=== PATIENT | male | born 1940 | race Caucasian/White ===

== ENCOUNTER 2018-10-06 13:14 | Inpatient (IN) ==
--- NOTE | 2018-10-06 13:23 | Emergency Department Note ---
Disposition Clinical Impression: Cerebrovascular accident Disposition: Admitted As Inpatient Condition: Undetermined General Adult HPI - General Stated complaint: Stroke like symptoms Time Seen by Provider: 10/06/18 13:16 - Related Data Home Medications Medication Instructions Recorded Confirmed Aspirin [Lo-Dose Aspirin EC] 81 mg PO DAILY 09/18/16 10/06/18 Multivitamin [Multi-Day Vitamins] 1 each PO DAILY 09/18/16 10/06/18 Cranberry 400 mg PO BID 10/06/18 10/06/18 Ubidecarenone [Coenzyme Q10] 100 mg PO DAILY 10/06/18 10/06/18 Allergies Allergy/AdvReac Type Severity Reaction Status Date / Time No Known Allergies Allergy Verified 09/18/16 12:57 Past Medical History - Past Medical History Medical history: Reports: atrial fibrillation, cancer, coronary artery disease, hyperlipidemia, malignancy, myocardial infarction, osteoporosis, valvular heart disease Surgical history: Reports: angioplasty/stent Psychiatric history: Reports: no psych history - Social History Smoking Status: Never smoker Alcohol use: Reports: none Drug use: Reports: none Course Vital Signs Temperature 98.1 F 10/06/18 13:19 Pulse Rate 62 10/06/18 13:19 Respiratory Rate 16 10/06/18 13:19 Blood Pressure 178/82 10/06/18 13:19 O2 Sat by Pulse Oximetry 99 10/06/18 13:19 Temperature 98.2 F 10/06/18 17:22 Pulse Rate 96 10/06/18 17:22 Respiratory Rate 15 10/06/18 17:22 Blood Pressure 156/80 10/06/18 17:22 O2 Sat by Pulse Oximetry 96 10/06/18 17:22 Medical Decision Making - Lab Data Result diagrams: 10/06/18 13:25 10/06/18 13:25 Lab Results 10/06/18 10/06/18 10/06/18 Range/Units 13:25 13:25 13:25 WBC 5.7 (4.3-11.1) K/mcL RBC 5.48 (4.19-5.50) M/mcL Hgb 16.9 (12.9-16.9) g/dL Hct 49.8 (37.5-50.1) % MCV 90.9 (83.0-100.0) fL MCH 30.8 (28.0-33.3) pg MCHC 33.9 (31.6-35.5) g/dL RDW 12.7 (11.5-14.5) % Plt Count 184 (140-400) K/mcL MPV 9.7 (9.4-12.4) fL Immature Gran % 0.2 (0-4) % Seg Neutrophils % 69.1 % Lymphocytes % 18.1 % Monocytes % 10.7 % Eosinophils % 1.2 % Basophils % 0.7 % Neutrophils # 3.9 (1.6-8.9) K/mcL Lymphocytes # 1.0 (0.6-4.6) K/mcL Monocytes # 0.6 (0.0-1.3) K/mcL Eosinophils # 0.1 (0.0-0.6) K/mcL Basophils # 0.0 (0.0-0.2) K/mcL PT 10.4 (9.4-12.1) Seconds INR 0.9 APTT 32.8 (26.0-36.0) Seconds Sodium 138 (136-145) mEq/L Potassium 4.3 (3.5-5.1) mEq/L Chloride 105 (98-107) mEq/L Carbon Dioxide 26 (23-29) mEq/L BUN 14 (8-23) mg/dL Creatinine 1.34 H (0.70-1.30) mg/dL Est GFR ( Amer) > 60 (> 60) Est GFR (Non-Af Amer) 52 L (> 60) BUN/Creatinine Ratio 10 (6-26) Glucose 115 H (70-105) mg/dL Calculated Osmolality 287 (280-300) Calcium 9.8 (8.6-10.3) mg/dL Total Bilirubin 0.5 (0.3-1.0) mg/dL AST 20 (13-39) Units/L ALT 16 (7-52) Units/L Alkaline Phosphatase 68 (34-104) Units/L Troponin I < 0.03 (< 0.04) ng/mL Serum Total Protein 7.8 (6.4-8.9) g/dL Albumin 4.6 (3.5-5.7) g/dL Globulin 3.2 (2.4-3.5) g/dL Albumin/Globulin Ratio 1.4 (1.1-2.2) Attestation Statement - Attestation Attestation: I reviewed the residents documentation and agree with the residents assessment and plan of care. I have personally had face to face time with the patient. (Brief History, Brief Exam, and MDM) I personally supervised and was present for the gleason/critical portions of the following procedures completed by the resident: (add procedures performed here). [id number] time provided I attest to supervised the resident physician's interpretation of the ECG. Patient presents the care of his significant other by private vehicle. Symptoms started 20 hours prior to arrival. She notes expressive aphasia and mild dysarthria. The patient denies focal weakness. The patient is awake and alert upon arrival. The seizure resident's documentation for NIH and full neurologic exam
--- NOTE | 2018-10-06 13:29 | Emergency Department Note ---
Disposition Clinical Impression: Cerebrovascular accident Qualifiers: CVA mechanism: unspecified Qualified Code(s): I63.9 - Cerebral infarction, unspecified Disposition: Admitted As Inpatient Condition: Undetermined Time of Disposition: 16:13 Neuro HPI - General Chief Complaint: ED Neuro Symptoms/Deficit Stated Complaint: Stroke like symptoms Time Seen by Provider: 10/06/18 13:16 Source: patient, family Limitations: no limitations - History of Present Illness HPI Narrative: 78-year-old male past medical history of valve transplant on aspirin but no formal anticoagulation presenting for a 24-hour history of aphasia and confusion. Patient's is at bedside states that patient became confused approximately 5 PM yesterday afternoon when he woke up from sleeping. Patient's states that she has never seen him act this way. Patient's says they have been for the past year and so she does not know his full history, patient is unable to participate in significant history of present illness questioning. Patient is able to answer simple yes or no questions when prompted regarding review of systems. Patient is alert and oriented to person only, cannot identify day of the week, location, year. Patient requires significant prompting to obey neurological examination commands. There are no focal neurological deficits appreciated other than what is mentioned above. - Related Data Home Medications: Home Medications Medication Instructions Recorded Confirmed Aspirin [Lo-Dose Aspirin EC] 81 mg PO DAILY 09/18/16 10/06/18 Multivitamin [Multi-Day Vitamins] 1 each PO DAILY 09/18/16 10/06/18 Cranberry 400 mg PO BID 10/06/18 10/06/18 Ubidecarenone [Coenzyme Q10] 100 mg PO DAILY 10/06/18 10/06/18 Allergies/Adverse Reactions: Allergies Allergy/AdvReac Type Severity Reaction Status Date / Time No Known Allergies Allergy Verified 09/18/16 12:57 Review of Systems: Constitutional: Denies: fever, chills Cardiovascular: Denies: chest pain Respiratory: Denies: dyspnea Gastrointestinal: Denies: abdominal pain, nausea, vomiting, diarrhea, constipation, hematemesis, melena, hematochezia Genitourinary: Denies: hematuria Musculoskeletal: Denies: back pain, neck pain Integumentary: Denies: rash Neurological: Denies: headache, weakness, numbness, paresthesias Endocrine: Denies: fatigue All systems ED: reviewed and negative except as stated. Review of Systems: As Per HPI Past Medical History - Past Medical History Medical history: Reports: atrial fibrillation, cancer, coronary artery disease, hyperlipidemia, malignancy, myocardial infarction, osteoporosis, valvular heart disease Surgical history: Reports: angioplasty/stent Psychiatric history: Reports: no psych history - Social History Smoking Status: Never smoker Alcohol use: Reports: none Drug use: Reports: none Physical Exam Constitutional: No acute distress, [id number], engaged to conversation, speech is fluid, answers questions appropriately Neuro: GCS 15, CN II-XII are grossly intact, reflexes 2/4 in bilateral upper and lower extremities, strength 5/5 in bilateral upper and lower extremities Head: Atraumatic, normocephalic Eyes: Pupils equal, round and reactive to light, external ocular muscles intact, no scleral icterus, no conjunctival injection, no nystagmus. Mouth: Mucous membranes are moist, oropharynx is without edema, erythema, or exudate. No tongue swelling, lip swelling, perioral cyanosis, drooling, or trismus. Neck: Trachea midline without deviation. Anterior neck is supple without swelling, no lymphadenopathy or thyromegaly noted. Chest: Symmetric chest wall rise Heart: Cardiac rhythm and rate are regular with S1 and S2 , no S3 or S4 appre ciated, no murmurs, rubs, or clicks. Lungs: Lungs are clear to auscultation bilaterally, without accessory muscle use or prolonged expiratory phase. No wheezes or stridor appreciated. Abdomen: Abdomen is flat, soft to palpation, normal bowel sounds, no evidence of bruising, surgical incisions, or abnormal mass. No abdominal bruit auscultated. Non-distended, non-rigid, no organomegaly, no ascites appreciated. No pulsatile mass, no tenderness or guarding to palpation, no rebound Extremities: No pedal edema, joint swelling or erythema. Pulses/motor/sensory intact in all 4 extremities. Psychiatric exam: Patient displays a normal affect and mood for the environment. No overt signs of hallucination. Integumentary: warm, dry, intact, normal color. No rash, cyanosis, diaphoresis, erythema, or pallor - General Limitations: altered mental status General appearance: alert, in no apparent distress Course Vital Signs Temperature 98.1 F 10/06/18 13:19 Pulse Rate 62 10/06/18 13:19 Respiratory Rate 16 10/06/18 13:19 Blood Pressure 178/82 10/06/18 13:19 O2 Sat by Pulse Oximetry 99 10/06/18 13:19 Temperature 98.1 F 10/06/18 13:19 Pulse Rate 54 10/06/18 14:49 Respiratory Rate 18 10/06/18 14:49 Blood Pressure 161/83 10/06/18 14:49 O2 Sat by Pulse Oximetry 97 10/06/18 14:49 Neuro Symptoms/Deficit - MDM Narrative Medical decision making narrative: Patient CT scan of the head shows left frontal infarction consistent with patient's Broca aphasia Patient will be admitted to hospitalist medicine service for further evaluation and treatment of CVA Patient & family verbalized understanding and agreement this plan. - Lab Data Lab results reviewed: Yes I reviewed the patient's lab results. Result diagrams: 10/06/18 13:25 10/06/18 13:25 Lab Results 10/06/18 10/06/18 10/06/18 Range/Units 13:25 13:25 13:25 WBC 5.7 (4.3-11.1) K/mcL RBC 5.48 (4.19-5.50) M/mcL Hgb 16.9 (12.9-16.9) g/dL Hct 49.8 (37.5-50.1) % MCV 90.9 (83.0-100.0) fL MCH 30.8 (28.0-33.3) pg MCHC 33.9 (31.6-35.5) g/dL RDW 12.7 (11.5-14.5) % Plt Count 184 (140-400) K/mcL MPV 9.7 (9.4-12.4) fL Immature Gran % 0.2 (0-4) % Seg Neutrophils % 69.1 % Lymphocytes % 18.1 % Monocytes % 10.7 % Eosinophils % 1.2 % Basophils % 0.7 % Neutrophils # 3.9 (1.6-8.9) K/mcL Lymphocytes # 1.0 (0.6-4.6) K/mcL Monocytes # 0.6 (0.0-1.3) K/mcL Eosinophils # 0.1 (0.0-0.6) K/mcL Basophils # 0.0 (0.0-0.2) K/mcL PT 10.4 (9.4-12.1) Seconds INR 0.9 APTT 32.8 (26.0-36.0) Seconds Sodium 138 (136-145) mEq/L Potassium 4.3 (3.5-5.1) mEq/L Chloride 105 (98-107) mEq/L Carbon Dioxide 26 (23-29) mEq/L BUN 14 (8-23) mg/dL Creatinine 1.34 H (0.70-1.30) mg/dL Est GFR ( Amer) > 60 (> 60) Est GFR (Non-Af Amer) 52 L (> 60) BUN/Creatinine Ratio 10 (6-26) Glucose 115 H (70-105) mg/dL Calculated Osmolality 287 (280-300) Calcium 9.8 (8.6-10.3) mg/dL Total Bilirubin 0.5 (0.3-1.0) mg/dL AST 20 (13-39) Units/L ALT 16 (7-52) Units/L Alkaline Phosphatase 68 (34-104) Units/L Troponin I < 0.03 (< 0.04) ng/mL Serum Total Protein 7.8 (6.4-8.9) g/dL Albumin 4.6 (3.5-5.7) g/dL Globulin 3.2 (2.4-3.5) g/dL Albumin/Globulin Ratio 1.4 (1.1-2.2) - Radiology Data Radiology results reviewed: Yes I reviewed the patient's radiology results. Head CT 10/06/18 13:21 IMPRESSION: Questionable area of acute or subacute infarct left frontal lobe. MRI with diffusion pulse sequence imaging would prove helpful for further assessment. No acute intracranial hemorrhage is seen. D/ / 10/06/2018 14:39:54 Varun French MD / maura Interpreting Provider: Varun French MD - EKG Data EKG attestation: Yes I reviewed and interpreted this EKG. EKG results narrative: Patient EKG shows a sinus rhythm with a heart rate of 64 bpm, NH interval of 186 ms, QR denominational 90 ms, QT/QTc interval 401/414 ms respectively. There are no significant ST segment elevations, depressions, pathologic Q waves, abnormal T- wave inversions, nor any other signs of acute ischemic change. This EKG performed today is generally consistent with prior EKG performed on 09/11/2016. NIH Stroke Scale - Level of Consciousness LOC: Alert - LOC Questions LOC Questions: Answers one correctly - LOC Commands LOC Commands: Performs one correctly - Best Gaze Best Gaze: Normal - Visual Visual: No visual loss - Facial Palsy Facial Palsy: Normal - Motor Arms Motor Arm-Left: No drift for 10 seconds Motor Arm-Right: No drift for 10 seconds - Motor Legs Motor Leg-Left: No drift for 5 seconds Motor Leg-Right: No drift for 5 seconds - Limb Ataxia Limb Ataxia: Normal, No Ataxia - Sensory Sensory: Normal - Best Language Best Language: Mild to moderate aphasia. Examiner can identify picture from response - Dysarthria Dysarthria: Mild, slurs some words - Extinction and Inattention Extinction and Inattention: Inattention or extinction in ONE modality - NIHSS Total Score NIHSS Total Score: 5 - Pupil Exam Left Pupil Reaction: Brisk Right Pupil Reaction: Brisk TPA Checklist - LKW: 3-4.5 hrs Add. Warnings/Precautions Patient/family understanding: The patient/family members have been counseled and understood the risk, benefit, and alternatives of treatment.
[2018-10-06 13:36] LABS: Basophils % 0.7 %; Eosinophils # 0.1 K/mcL (0.0-0.6); Eosinophils % 1.2 %; Hematocrit 49.8 % (37.5-50.1); Hemoglobin 16.9 g/dL (12.9-16.9); Immature Granulocytes % 0.2 % (0-4); Lymphocytes % 18.1 %; Mean Corpuscular HGB Conc 33.9 g/dL (31.6-35.5); Mean Corpuscular Hemoglobin 30.8 pg (28.0-33.3); Mean Corpuscular Volume 90.9 fL (83.0-100.0); Mean Platelet Volume 9.7 fL (9.4-12.4); Monocytes # 0.6 K/mcL (0.0-1.3); Monocytes % 10.7 %; Neutrophils # 3.9 K/mcL (1.6-8.9); Platelet Count 184 K/mcL (140-400); Red Blood Count 5.48 M/mcL (4.19-5.50); Red Cell Distribution Width 12.7 % (11.5-14.5); Segmented Neutrophils % 69.1 %
[2018-10-06 13:44] LABS: INR 0.9; Prothrombin Time 10.4 Seconds (9.4-12.1)
[2018-10-06 13:47] LABS: Activated Partial Thrombo Time 32.8 Seconds (26.0-36.0)
[2018-10-06 13:58] LABS: Alanine Aminotransferase 16 Units/L (7-52); Albumin 4.6 g/dL (3.5-5.7); Albumin/Globulin Ratio 1.4 (1.1-2.2); Alkaline Phosphatase 68 Units/L (34-104); Aspartate Amino Transferase 20 Units/L (13-39); BUN/Creatinine Ratio 10 (6-26); Bilirubin,Total 0.5 mg/dL (0.3-1.0); Blood Urea Nitrogen 14 mg/dL (8-23); Calcium 9.8 mg/dL (8.6-10.3); Carbon Dioxide 26 mEq/L (23-29); Chloride 105 mEq/L (98-107); Globulin 3.2 g/dL (2.4-3.5); Glucose 115 mg/dL (70-105); Osmolality,Calculated 287 (280-300); Potassium 4.3 mEq/L (3.5-5.1); Sodium 138 mEq/L (136-145); Total Protein 7.8 g/dL (6.4-8.9); eGFR For Non-African Americans 52 (> 60)
[2018-10-06 13:59] LABS: Troponin I < 0.03 ng/mL (< 0.04)
[2018-10-06] MEDS ORDERED: Ondansetron 4 MG/2 ML VIAL IVP PRN (15:48)
[2018-10-06] MEDS ORDERED: Naloxone 0.4 MG/ML INJ IVP PRN (15:48)
--- NOTE | 2018-10-06 16:35 | Internal Med History&Physical ---
Date of Encounter: 10/06/18 Time of Encounter: 16:35 Internal Medicine - H&P: HPI Chief complaint: If occultly speaking Admitted From: Emergency Dept Plans for Post Hospital Care: Home History of present illness: Mr. Benítez is a 78 year old male past medical history of ND with stent placement 2 hypertension valve replacement in 2016 BPH patient has one kidney- according to the patient was at home preparing to eat dinner yesterday evening approximately 5 PM and was saying amber having difficulty finding words she noticed that his face was very red he also had elevated blood pressure yesterday with systolic ran 170 patient's states usually it is 120 systolic. As the day progressed he continued unable to speak and did display some confusion. This a.m. became concerned because symptoms did not re solve he was brought to the ER for evaluation. Prior to this episode patient was in his usual state of health CT of head was obtained which did reveal a questionable area of acute or subacute infarct in left frontal lobe. Lab work was unremarkable. He was admitted for further work up evaluation. Currently patient is able to tell me his name and that he is at [place] however he displays word searching and at times needs prompted. No other focal deficits noted- during evaluation he needs prompted to follow commands. Vital signs are stable at this time he has been admitted for further workup and evaluation for CVA I did discuss CODE STATUS with the patient and request DNR CC CAD and I. Past Med Surg Social Fam HX - Past Medical History Medical history: atrial fibrillation, cancer, coronary artery disease, hyperlipidemia, malignancy, myocardial infarction, osteoporosis, valvular heart disease Psychiatric history: no psych history - Past Surgical History Surgical History: angioplasty/stent Additional surgical history: tissue valve - Social History Smoking Status: Never smoker Alcohol use: none Drug use: none - Family History Father Living Status: Hx Family Cardiac Disorders: Yes (brother) Hx Family Respiratory Disorders: No Hx Family Cancer: Yes (mother) Hx Family GI Disorders: No Hx Family Endocrine Disorder: Yes (mother, father) Hx Family Neuromuscular Disorders: No Hx Family Neurologic Disorders: No Hx Family HEENT Disorders: No Hx Family Autoimmune Disorders: No Internal Medicine - H&P: Meds Aspirin [Lo-Dose Aspirin EC] 81 mg PO DAILY 09/18/16 [History] Multivitamin [Multi-Day Vitamins] 1 each PO DAILY 09/18/16 [History] Cranberry 400 mg PO BID 10/06/18 [History] Ubidecarenone [Coenzyme Q10] 100 mg PO DAILY 10/06/18 [History] Allergy/AdvReac Type Severity Reaction Status Date / Time No Known Allergies Allergy Verified 09/18/16 12:57 All Systems PM: A 10-system review of systems was performed and is negative for pertinent findings except as documented above in the HPI. - Constitutional Constitutional: no chills, no fever(s), no night sweats - EENT Eyes: no change in vision, no discharge, no pain, no photophobia Ears: no ear discharge, no ear pain, no tinnitus Nose, mouth and throat: no dysphagia, no nasal discharge, no neck pain, no sore throat - Constitutional Vitals: Temp Pulse Resp BP Pulse Ox 98.1 F 59 18 167/89 97 10/06/18 13:19 10/06/18 16:27 10/06/18 16:27 10/06/18 16:27 10/06/18 16:27 General appearance: Present: A&O X 2 Exam: . - Head Head exam: Present: atraumatic, normocephalic - Eye Eye exam: Present: PERRL, conjuntiva pink, sclera anicteric Pupils: Present: PERRL - Neck Neck exam general surgery: Present: supple, trachea midline. Absent: lymphadenopathy - Respiratory Respiratory exam: Present: CTAB. Absent: accessory muscle use, rales, rhonchi, wheezes - Cardiovascular Cardiovascular exam: Present: RRR, +S1, +S2. Absent: diastolic murmur, gallop, rubs, systolic murmur - GI/Abdominal GI/Abdominal exam: Present: normal bowel sounds, soft, no peritoneal signs. Absent: distended, tenderness - Extremities Exam Extremities exam: Present: warm, radial pulses palpable and symmetrical. Absent: calf tenderness, cyanotic, pedal edema - Neurological Exam Neurological exam: Present: CN II-XII intact, oriented X3, no focal deficits. Absent: pronater drift, facial droop, speech deficit - Expanded Neurological Exam Neurological exam expanded: Present: expressive aphasia Patient oriented to: Present: person, place Speech: Present: anomia Cranial Nerves: EOM's intact PM: Normal, nystagmus PM: Normal, tongue deviation PM: Normal Cerebellar function: finger to nose: Abnormal Left, Abnormal Right (Unable to follow commands), heel to green: Normal Neuro motor strength exam: LUE: 5, RUE: 5, LLE: 5, RLE: 5 Coma Scale Eye Opening: Spontaneous Coma Scale Motor Response: Obeys Commands Coma Scale Verbal Response: Confused Coma Scale Total: 14 - Skin Skin exam: Present: dry, intact Internal Med - H&P Results - Labs CBC & Chem 7: 10/06/18 13:25 10/06/18 13:25 Labs: Short CBC 10/06/18 Range/Units 13:25 WBC 5.7 (4.3-11.1) K/mcL Hgb 16.9 (12.9-16.9) g/dL Hct 49.8 (37.5-50.1) % Plt Count 184 (140-400) K/mcL Neutrophils # 3.9 (1.6-8.9) K/mcL BMP 10/06/18 13:25 Sodium 138 Potassium 4.3 Chloride 105 Carbon Dioxide 26 BUN 14 Creatinine 1.34 H Glucose 115 H Calcium 9.8 Cardiac Enzymes 10/06/18 Range/Units 13:25 Troponin I < 0.03 (< 0.04) ng/mL Liver Function 10/06/18 Range/Units 13:25 Total Bilirubin 0.5 (0.3-1.0) mg/dL AST 20 (13-39) Units/L ALT 16 (7-52) Units/L Alkaline Phosphatase 68 (34-104) Units/L Albumin 4.6 (3.5-5.7) g/dL - EKG Data EKG shows normal: sinus rhythm - Impressions ITS Impressions Head CT 10/06/18 13:21 IMPRESSION: Questionable area of acute or subacute infarct left frontal lobe. MRI with diffusion pulse sequence imaging would prove helpful for further assessment. No acute intracranial hemorrhage is seen. D/ / 10/06/2018 14:39:54 Varun French MD / maura Interpreting Provider: Varun French MD - Assessment and Plan (1) Cerebrovascular accident Current Visit: Yes Status: Acute Assessment and plan: Patient presented with sudden onset of confusion and expressive aphasia-which began approximately 5:00 yesterday evening-CT of head does show possible area of acute or subacute infarct left frontal lobe We will obtain MRI head and brain Continuous cardiac monitoring Obtain cardiac echo Obtain carotid duplex Aspirin-we will give RC due to possible dysphagia Speech therapy evaluation Bedside evaluation for speech NIHSS PT OT evaluation Neurology has been consulted Lipid profile statin Allow permissive hypertension hydralazine as needed Qualifiers: CVA mechanism: unspecified Qualified Code(s): I63.9 - Cerebral infarction, unspecified (2) HTN (hypertension) Current Visit: Yes Status: Acute Assessment and plan: We will allow for permissive hypertension hydralazine as needed-patient is not on any home medications for high blood pressure Qualifiers: Hypertension type: essential hypertension Qualified Code(s): I10 - Essential (primary) hypertension (3) DVT prophylaxis Current Visit: Yes Status: Acute Assessment and plan: scd - Time Spent With Patient Total time spent is greater than 50% in coordination of care (as documented) at patient's floor/unit and/or counseling patient:
[2018-10-06] MEDS ORDERED: 0.9 % Sodium Chloride 1,000 ML IVC SCH (17:45)
[2018-10-07] MEDS ORDERED: diazePAM 10 MG/2 ML SYRINGE IVP ONE (00:55)
[2018-10-07 01:36] LABS: Basophils % 0.6 %; Eosinophils # 0.1 K/mcL (0.0-0.6); Eosinophils % 1.6 %; Hematocrit 47.9 % (37.5-50.1); Hemoglobin 16.4 g/dL (12.9-16.9); Immature Granulocytes % 0.3 % (0-4); Lymphocytes # 1.3 K/mcL (0.6-4.6); Lymphocytes % 18.8 %; Mean Corpuscular HGB Conc 34.2 g/dL (31.6-35.5); Mean Corpuscular Hemoglobin 31.4 pg (28.0-33.3); Mean Corpuscular Volume 91.6 fL (83.0-100.0); Mean Platelet Volume 10.3 fL (9.4-12.4); Monocytes # 0.8 K/mcL (0.0-1.3); Monocytes % 11.2 %; Neutrophils # 4.6 K/mcL (1.6-8.9); Platelet Count 161 K/mcL (140-400); Red Blood Count 5.23 M/mcL (4.19-5.50); Red Cell Distribution Width 12.9 % (11.5-14.5); Segmented Neutrophils % 67.5 %
[2018-10-07 01:52] LABS: BUN/Creatinine Ratio 12 (6-26); Blood Urea Nitrogen 14 mg/dL (8-23); Calcium 9.6 mg/dL (8.6-10.3); Carbon Dioxide 23 mEq/L (23-29); Chloride 107 mEq/L (98-107); Chol/HDL Ratio 4.1 (0-4.9); Cholesterol 159 mg/dL (< 200); Glucose 83 mg/dL (70-105); HDL Cholesterol 39 mg/dL (40-59); LDL Cholesterol,Calculated 102 mg/dL (0-99); Magnesium 2.1 mg/dL (1.6-2.6); Osmolality,Calculated 290 (280-300); Potassium 4.4 mEq/L (3.5-5.1); Sodium 140 mEq/L (136-145); Triglycerides 92 mg/dL (< 150); eGFR For Non-African Americans > 60 (> 60)
[2018-10-07] MEDS ORDERED: Perflutren Lipid Microsphere 1.3 ML in 0.9 % Sodium Chloride 8.7 ML IVP ONE (07:40)
[2018-10-07] MEDS ORDERED: Aspirin Enteric Coated 81 MG Tablet PO SCH (09:00)
--- NOTE | 2018-10-07 09:38 | Neurology - Consult Note ---
Date of Encounter: 10/07/18 Time of Encounter: 09:36 Assessment and Plan (1) Cerebrovascular accident Current Visit: Yes Status: Acute Neuro consulted for an acute CVA Risk factors Presented with sudden expressive aphasia and confusion MRI imaging positive for acute ischemia identifying a small area of acute infarct in the left frontal lobe. Additionally there is a punctate area of acute infarct within the medial right occipital lobe and chronic small vessel ischemic white matter disease and diffuse cerebral volume loss Echocardiogram-pending Given the distribution of ischemia etiology is concerning for an embolic source We will get a RIC in the morning to evaluate for embolic source Start heparin gtt without bolus per stroke protocol given further risk for CVA; if no embolic source found on RIC we will d/c. Agree with continuing aspirin and statin therapy Continue neurological assessments per protocol Qualifiers: CVA mechanism: unspecified Qualified Code(s): I63.9 - Cerebral infarction, unspecified History of Present Illness Chief complaint: CVA HPI: Mr. Benítez is a 78 year old male with a PMH of A. fib not on anticoagulation, cancer, CAD, HLD, IA, valvular heart disease S/P bovine aortic valve. He presents to [facility] with concerns for expressive aphasia and confusion. The patient present with his who reported that he was having hypertensive episodes at home, further she notes that he developed some confusion and did not appear to be able to speak. He appeared to have difficulty with word finding. MRI of the brain completed and identified a small area of acute infarct in the left frontal lobe, additionally there is a punctate area of acute infarct within the medial right occipital lobe and chronic small vessel ischemic white matter disease and diffuse cerebral volume loss. At the time of my exam this morning the patient reports that his expressive aphasia is improving however he does ap pear to have some word searching. He denies any other neurological deficits but again, on exam there is some subtle right arm weakness. Neuro will continue to workup CVA Past Med Surg Social Fam HX - Past Medical History Medical history: atrial fibrillation, cancer, coronary artery disease, hyperlipidemia, malignancy, myocardial infarction, osteoporosis, valvular heart disease Psychiatric history: no psych history - Past Surgical History Surgical History: angioplasty/stent Additional surgical history: tissue valve - Social History Smoking Status: Never smoker Alcohol use: none Drug use: none - Family History Father Living Status: Hx Family Cardiac Disorders: Yes (brother) Hx Family Respiratory Disorders: No Hx Family Cancer: Yes (mother) Hx Family GI Disorders: No Hx Family Endocrine Disorder: Yes (mother, father) Hx Family Neuromuscular Disorders: No Hx Family Neurologic Disorders: No Hx Family HEENT Disorders: No Hx Family Autoimmune Disorders: No Medications and Allergies Aspirin [Lo-Dose Aspirin EC] 81 mg PO DAILY 09/18/16 [History] Multivitamin [Multi-Day Vitamins] 1 each PO DAILY 09/18/16 [History] Cranberry 400 mg PO BID 10/06/18 [History] Ubidecarenone [Coenzyme Q10] 100 mg PO DAILY 10/06/18 [History] Allergy/AdvReac Type Severity Reaction Status Date / Time No Known Allergies Allergy Verified 09/18/16 12:57 All Systems: The remainder of the systems were reviewed and are negative Review of Systems: REVIEW OF SYSTEMS GENERAL: Negative for any nausea, vomiting, fevers, chills, or weight loss, fatigue, exercise tolerance, legs feel heavy, slower to complete tasks, impaired mobility NEUROLOGIC: Negative for any visual disturbances, facial asymmetry, dysphagia, dysarthria, hemiparesis, hemisensory deficits, vertigo, ataxia, seizures, paralysis, tingling, numbness, unilateral weakness or numbness/tingling + Expressive aphasia, confusion CARDIAC: Negative for any chest pain, dyspnea, palpitations Physical Examination - Vital Signs Vital Signs: Initial Vital Signs Temp Pulse Resp BP Pulse Ox 98.1 F 62 16 178/82 99 10/06/18 13:19 10/06/18 13:19 10/06/18 13:19 10/06/18 13:19 10/06/18 13:19 - Exam Exam: Examination: General Examination: *CONSTITUTIONAL: Alert and oriented x3, no acute distress *GENERAL APPEARANCE OF PATIENT appears overall healthy and well groomed *EYES: pupils equal, round, reactive to light and accommodation, conjunctiva clear *CARDIOVASCULAR no peripheral edema, distal temperature normal, dorsalis p lesia pulses normal. see vital signs Musculoskeletal: *GAIT AND STATION patient's gait was somewhat unsteady with a noted rightward drift with ambulation *ASSESSMENT OF MUSCLE STRENGTH IN THE UPPER AND LOWER EXTREMITIES bilaterally deltoid, bicep, tricep, knife blade polisher strength, hip flexors ,anterior tibialis, dorsoflexion of the foot 4/5; subtle right arm weakness but still 4/5 *MUSCLE TONE IN THE UPPER AND LOWER EXTREMITIES normal. No abnormal movements, fasciculations or atrophy identified. Neurological: *ORIENTATION to person, situation, time and place *RECURRENT AND REMOTE MEMORY intact *ATTENTION AND CONCENTRATION are normal *LANGUAGE FUNCTION no significant aphasia or dysarthia was noted. *FUND OF KNOWLEDGE aware of current events, past history, vocabulary *MENTAL attention span and concentration normal. *CN II optic fundi were normal, no papilledema noted. *CN III,IV, PERRLA extraocular eye movements were full, no nystagmus and no ptosis noted. *CN V shows normal sensation and jaw opens symmetrically. *CN VII shows normal facial movement symmetrically, upper and lower bilaterally. *CN VIII shows no significant hearing loss on exam *CN IX,,X palate elevated symmetrically *CN XI normal strength in the sternocleidomastoid muscles, symmetrical shoulder shrugging. *CN XII tongue protruded in the midline, with normal strength and movement. *SENSORY EXAMINATION light touch intact *REFLEXES: deep tendon reflexes were normal and symmetrical , grade 2/4 diffusely, no pathological reflexes were noted. *CEREBELLAR TESTING normal finger to nose, heel/knee/green *PAIN LEVEL 0 Results - Laboratory Findings CBC and BMP: 10/07/18 00:25 10/07/18 00:25 Abnormal lab findings: Abnormal lab results 1.34 mg/dL (0.70-1.30) H 10/06/18 13:25 Est GFR (Non-Af Amer) 52 (> 60) L 10/06/18 13:25 Glucose 115 mg/dL (70-105) H 10/06/18 13:25 POC Glucose 104 mg/dL (70-99) H 10/06/18 13:18 LDL Cholesterol, Calc 102 mg/dL (0-99) H 10/07/18 00:25 39 mg/dL (40-59) L 10/07/18 00:25 - Diagnostic Findings Additional findings: MR/MR head/brain wo con IMPRESSION: Small area of acute infarct within the left frontal lobe. Additional punctate area of acute infarct within medial right occipital lobe. No evidence of intracranial hemorrhage. Chronic small vessel ischemic white matter disease and diffuse cerebral volume loss. Consult Discharge Plan - Plan [facility]errals: [facility] [Primary Care Provider] -
--- NOTE | 2018-10-07 12:25 | Electrocardiograph Report ---
Echo with Saline Contrast Name: Boris Benítez Date of Study: 10/07/2018 Date: 1940 Ht: 67.0 in Medical Record#: [id number] Age: 78 Wt: 182.0 lb Gender: Male BSA: 1.94 Order #: [id number] Location: [facility] Room #: 2NE31 Reading Physician:Howie Bennett MD, FACC Ordering Physician:Monse Thornton CNP Wharf Hand: Michelle Lucero, ARTHUR, RVT Indications: Cerebrovascular Accident Impressions: LVEF 55%. Mild left ventricular diastolic dysfunction. Normal right ventricular structure and function. No evidence of PFO with agitated saline contrast. Mild aortic stenosis. Mild tricuspid regurgitation. No evidence of pulmonary hypertension. Left Ventricular Wall Motion: Rest Echo Findings All wall segments showed normal motion. Findings: Study Quality * Technically sub-optimal due to poor echocardiographic windows. ECG Findings * Normal sinus rhythm. * Sinus rhythm with PACs. Left Ventricle * LVEF 55%. * Mild left ventricular diastolic dysfunction. * Atypical septal motion noted. * Normal LV chamber size, wall thickness and function. Right Ventricle * Normal right ventricular structure and function. Left Atrium * Normal left atrial size. Right Atrium * Normal right atrial size. Interatrial Septum * No evidence of PFO with agitated saline contrast. Aortic Valve * Trileaflet aortic valve. * Peak aortic velocity and mean gradients are 2.79m/s and 14 mmHg, respectively. * Mild aortic stenosis. * No aortic regurgitation. * Mildly calcified aortic valve leaflets. Mitral Valve * Trace mitral regurgitation. * No mitral stenosis. * Normal mitral valve structure. Tricuspid Valve * Mild tricuspid regurgitation. * No evidence of pulmonary hypertension. * No tricuspid stenosis. * Normal tricuspid valve structure. Pulmonic Valve * Pulmonic valve not well visualized. Aorta * Normally sized aortic root. Pericardium * The pericardium appears normal. IVC * The IVC is not well evaluated. Pulmonary Artery * Pulmonary artery not well visualized. History Hypercholesteremia Family History of CAD History of CAD/PTCA Myocardial Infarction Valvular Disease Contrast: Agitated saline 20 ml. Measurements: BP: 121/ 74 2D Normal Values RVIDd: 3.20 cm <2.7 cm IVSd: .90 cm 0.6 - 1.0 cm LVIDd: 5.30 cm 3.7 - 5.6 cm LVPWd: .80 cm 0.6 - 1.1 cm LVIDs: 3.90 cm 1.5 - 3.6 cm AO: 1.90 cm < 4.0 cm LA: 4.10 cm 2.0 - 4.0cm %FS: 26.40 cm >25 % LVOT Diam: 2.00 cm LA volume: 61 Mitral Valve Peak E:.85 m/sec Peak A:.88 m/sec E/A Ratio:1 Peak E' Lat Vahe:9.47 cm/s Peak E' Med Vahe:4.9 cm/s E/E' Lat Ratio:9 E/E' Med Ratio:17.4 LVOT Peak Vahe:1.14 m/sec Mean Vahe:.75 m/sec Peak Grad:5.00 mmHg Mean Grad:3.00 mmHg Aortic Valve Peak Vahe:2.79 m/sec Mean Vahe:1.75 m/sec Peak Grad:31.00 mmHg Mean Grad:14.00 mmHg Valve Area:1.26 cm2 Tricuspid Valve TV Regurg Peak Grad: 20.00mmHg TV Regurg Peak Vahe: 2.26m/sec Updated by Howie Bennett MD, FACC on 10/07/2018 12:17:09 PM electronically signed on 10/07/2018 12:18:25 PM with status of Final Wall Motion Lamb: 1=Normal, 2=Hypokinesis, 3=Akinesis, 4=Dyskinesis, 5=Aneurysmal, 6=Hyperkinetic, X=Not Visualized (Blank)=Missing
[2018-10-07] MEDS ORDERED: Isovue-370 500 ML BOTTLE IVP ONE (12:29)
[2018-10-07] MEDS ORDERED: *HR* Heparin 5,000 UNIT/ML VIAL IVP PRN ×2 (16:05)
[2018-10-07] MEDS ORDERED: Heparin 25,000 UNIT/250 ML D5W 25,000 UNIT/250 ML IV.SOLN IVC SCH (16:15)
[2018-10-07 16:35] LABS: Hematocrit 52.2 % (37.5-50.1); Hemoglobin 17.7 g/dL (12.9-16.9); Mean Corpuscular HGB Conc 33.9 g/dL (31.6-35.5); Mean Corpuscular Hemoglobin 31.6 pg (28.0-33.3); Mean Platelet Volume 9.7 fL (9.4-12.4); Platelet Count 179 K/mcL (140-400); Red Blood Count 5.61 M/mcL (4.19-5.50); Red Cell Distribution Width 12.9 % (11.5-14.5)
[2018-10-07 16:37] LABS: Bilirubin,Urine Negative (Negative); Blood,Urine Negative (Negative); Clarity,Urine Clear (Clear); Color,Urine Yellow (Yellow); Glucose,Urine (UA) Normal (Normal); Ketones,Urine 40 mg/dL (Negative); Leukocyte Esterase,Urine Negative (Negative); Nitrite,Urine Negative (Negative); PH,Urine 5.5 pH Units (5.0-8.0); Protein,Urine Negative (Neg-Trace); Specific Gravity,Urine > 1.030 (1.010-1.025); Urobilinogen,Urine Normal (Normal)
[2018-10-07 16:42] LABS: Heparin anti-factor XA UFH 0.02 IU/mL (0.30-0.70); Prothrombin Time 10.9 Seconds (9.4-12.1)
[2018-10-07 18:44] LABS: Activated Partial Thrombo Time 32.3 Seconds (26.0-36.0)
--- NOTE | 2018-10-07 19:56 | Internal Med Progress Note ---
Hospitalist Progress Note - Encounter Date of Encounter: 10/07/18 Time of Encounter: 19:49 - Subjective Interval History: Pt denies fever, chills, N/V or diarrhea. He denies CP or SOB. HE denies trouble with is vision or difficulty swallowing. He denies difficulty ambulating or any other focal weakness. He states " I'm fine." Female friend at bedside during my evaluation. - Exam Vitals: Temp Pulse Resp BP Pulse Ox 97.9 F 94 15 126/70 98 10/07/18 07:16 10/07/18 15:55 10/07/18 15:55 10/07/18 15:55 10/07/18 15:55 Exam: General appearance: Present: A&O X 2 Exam: Head exam: Present: atraumatic, normocephalic Eye exam: Present: PERRL, conjuntiva pink, sclera anicteric Pupils: Present: PERRLA Neck exam general surgery: Present: supple, trachea midline. Absent: lymphadenopathy Respiratory exam: Present: CTAB. Absent: accessory muscle use, rales, rhonchi, wheezes Cardiovascular exam: Present: RRR, +S1, +S2. Absent: diastolic murmur, gallop, rubs, systolic murmur GI/Abdominal exam: Present: normal bowel sounds, soft, no peritoneal signs. Absent: distended, tenderness Extremities exam: Present: warm, radial pulses palpable and symmetrical. Absent: calf tenderness, cyanotic, pedal edema Neurological exam: Present: CN II-XII intact, oriented X3, no focal deficits. Absent: pronater drift, facial droop, speech deficit - Assessment and Plan (1) Cerebrovascular accident Current Visit: Yes Status: Acute Assessment and Plan: Patient presented with sudden onset of confusion and expressive aphasia-which began approximately 5:00 yesterday evening -CT of head did show possible area of acute or subacute infarct left frontal lobe MRI rain showed small area of infarct. Neurology changing TTE to RIC CTA head and neck also ordered and no intracranial arterial large vessel Aspirin-we will give RC due to possible dysphagia Speech evaluation ordered and neuro making NPO again NIHSS PT/OT evaluation ordered Neurology has been consulted Lipid profile ASA and Statin Allow permissive hypertension hydralazine as needed (2) HTN (hypertension) Current Visit: Yes Status: Acute Assessment and Plan: We will allow for permissive hypertension hydralazine as needed-patient is not on any home medications for high blood pressure (3) HLD (hyperlipidemia) Current Visit: Yes Status: Acute Assessment and Plan: Continue on statin DVT Prophylaxis: scd - Time Spent with Patient Total time spent is greater than 50% in coordination of care (as documented) at patient's floor/unit and/or counseling patient: less than 15 minutes Plan of Care Discussed with: patient Internal Medicine: Result - Labs CBC & Chem 7: 10/07/18 16:20 10/07/18 00:25 Labs: Short CBC 10/07/18 10/07/18 Range/Units 00:25 16:20 WBC 6.8 7.0 (4.3-11.1) K/mcL Hgb 16.4 17.7 H (12.9-16.9) g/dL Hct 47.9 52.2 H (37.5-50.1) % Plt Count 161 179 (140-400) K/mcL Neutrophils # 4.6 (1.6-8.9) K/mcL BMP 10/07/18 00:25 Sodium 140 Potassium 4.4 Chloride 107 Carbon Dioxide 23 BUN 14 Creatinine 1.16 Glucose 83 Calcium 9.6 Cardiac Enzymes 10/07/18 Range/Units 00:25 Troponin I < 0.03 (< 0.04) ng/mL Urine 10/07/18 Range/Units 16:24 Urine Color Yellow (Yellow) Urine Clarity Clear (Clear) Urine pH 5.5 (5.0-8.0) pH Units Ur Specific Tracy > 1.030 H (1.010-1.025) Urine Protein Negative (Neg-Trace) mg/dL Urine Glucose (UA) Normal (Normal) mg/dL - ABG Interpretation ABG results: PT/INR, D-dimer PT 10.9 Seconds (9.4-12.1) 10/07/18 16:20 - Impressions Impressions Head CTA 10/07/18 13:00 IMPRESSION: No intracranial arterial large vessel occlusion. No arterial flow-limiting stenosis in the neck. No evidence of acute intracranial hemorrhage. No mass effect. D/ / 10/07/2018 13:46:01 Jerson Cano MD / katie Interpreting Provider: Jerson Cano MD Neck CTA 10/07/18 13:00 IMPRESSION: No intracranial arterial large vessel occlusion. No arterial flow-limiting stenosis in the neck. No evidence of acute intracranial hemorrhage. No mass effect. D/ / 10/07/2018 13:46:01 Jerson Cano MD / katie Interpreting Provider: Jerson Cano MD Consult Discharge Plan - Plan [facility]errals: [facility] [Primary Care Provider] - _ (1) Cerebrovascular accident Qualifiers: CVA mechanism: unspecified Qualified Code(s): I63.9 - Cerebral infarction, unspecified (2) HTN (hypertension) Qualifiers: Hypertension type: essential hypertension Qualified Code(s): I10 - Essential (primary) hypertension
[2018-10-08] MEDS ORDERED: *HR* FentaNYL (PF) 100 MCG/2 ML VIAL IVP PRN (07:58)
[2018-10-08] MEDS ORDERED: Lidocaine Viscous Oral Soln 15 ML SOLUTION MM PRN (07:58)
[2018-10-08] MEDS ORDERED: 0.9 % Sodium Chloride 500 ML IVC ONE (07:59)
--- NOTE | 2018-10-08 08:28 | Internal Med Progress Note ---
Hospitalist Progress Note - Encounter Date of Encounter: 10/08/18 Time of Encounter: 11:00 - Subjective Interval History: awake, family at bedside, back from [place]. denies weakness, speech is returned to normal, no numbness, tingling. - Exam Vitals: Temp Pulse Resp BP Pulse Ox 97.9 F 62 12 157/80 98 10/08/18 08:11 10/08/18 08:11 10/08/18 08:11 10/08/18 08:11 10/08/18 08:11 Exam: gen- alert, awake,appears stated age eyes- pupils equal round cv- reg rate and rhythm, normal s1,s2, no murmurs appreciated, no le edema lungs- ctabl, no wheezing, rhonchi or crackles, normal resp effort on room air neuro- AAOx3, CN grossly intact, no focal deficits - Assessment and Plan (1) Cerebrovascular accident Current Visit: Yes Status: Acute Assessment and Plan: Patient presented with sudden onset of confusion and expressive aphasia-which began approximately 5:00 yesterday evening -CT of head did show possible area of acute or subacute infarct left frontal lobe MRI rain showed small area of infarct. BELEN unremarkable CTA head and neck also ordered and no intracranial arterial large vessel asa + statin Speech evaluation ordered and neuro making NPO againand reg diet PT/OT - PT is pending and need rec prior to dc Neurology following- ok to follow up outpt, no ac needed, hep gtt discontinued -need to contact cards in am and see if can arrange holter monitor as outpt on dc (2) HTN (hypertension) Current Visit: Yes Status: Acute Assessment and Plan: We allowed for permissive hypertension -patient is not on any home medications for high blood pressure normotensive (3) HLD (hyperlipidemia) Current Visit: Yes Status: Acute Assessment and Plan: Continue on statin DVT Prophylaxis: scd and ambulation, likely dc in am - Time Spent with Patient Total time spent is greater than 50% in coordination of care (as documented) at patient's floor/unit and/or counseling patient: Internal Medicine: Result - Labs CBC & Chem 7: 10/07/18 16:20 10/07/18 00:25 Labs: Short CBC 10/07/18 Range/Units 16:20 WBC 7.0 (4.3-11.1) K/mcL Hgb 17.7 H (12.9-16.9) g/dL Hct 52.2 H (37.5-50.1) % Plt Count 179 (140-400) K/mcL Urine 10/07/18 Range/Units 16:24 Urine Color Yellow (Yellow) Urine Clarity Clear (Clear) Urine pH 5.5 (5.0-8.0) pH Units Ur Specific [place] > 1.030 H (1.010-1.025) Urine Protein Negative (Neg-Trace) mg/dL Urine Glucose (UA) Normal (Normal) mg/dL - ABG Interpretation ABG results: PT/INR, D-dimer PT 10.9 Seconds (9.4-12.1) 10/07/18 16:20 - Impressions Impressions Head CTA 10/07/18 13:00 IMPRESSION: No intracranial arterial large vessel occlusion. No arterial flow-limiting stenosis in the neck. No evidence of acute intracranial hemorrhage. No mass effect. D/ / 10/07/2018 13:46:01 Jerson Cano MD / katie Interpreting Provider: Jerson Cano MD Neck CTA 10/07/18 13:00 IMPRESSION: No intracranial arterial large vessel occlusion. No arterial flow-limiting stenosis in the neck. No evidence of acute intracranial hemorrhage. No mass effect. D/ / 10/07/2018 13:46:01 Jerson Cano MD / katie Interpreting Provider: Jerson Cano MD Consult Discharge Plan - Plan [facility]errals: [facility] [Primary Care Provider] - Suzette Webb MD [Partnered Physician] - 10/23/18 8:00 am (Follow up with DR. WEBB) (1) Cerebrovascular accident Qualifiers: CVA mechanism: unspecified Qualified Code(s): I63.9 - Cerebral infarction, unspecified (2) HTN (hypertension) Qualifiers: Hypertension type: essential hypertension Qualified Code(s): I10 - Essential (primary) hypertension
[2018-10-08] MEDS: *HR* Midazolam HCl 5 MG/5 ML VIAL IVP PRN ×2 (09:00→09:05)
--- NOTE | 2018-10-08 13:14 | Neurology Progress Note ---
Date of Encounter: 10/08/18 Time of Encounter: 13:11 Assessment and Plan (1) Cerebrovascular accident Current Visit: Yes Status: Acute Neuro consulted for an acute CVA Presented with sudden expressive aphasia and confusion MRI positive for acute ischemia identifying a small area of acute infarct in the left frontal lobe. Additionally there is a punctate area of acute infarct within the medial right occipital lobe and chronic small vessel ischemic white matter disease and diffuse cerebral volume loss Findings consistent with embolic source RIC obtained and did not identify an intracardiac thrombus Echocardiogram-no PFO, no thrombus Neuro exam today is non focal, no expressive aphasia. Does not appear to have confusion. Patient and family report that he is back to baseline. Plan: D/C heparin gtt c/w ASA but increase dose to 325 PO daily; will need Rx at d/c c/w statin therapy f/u with Dr. Webb in 7-10 days Rec cardiology f/u at d/c; will need long-term rhythm monitoring with concerns for unknown embolic source Discussed lifestyle modifications, and risk factor managment. Discussed CVA s/sx Okay to d/c at the discretion of the primary team Qualifiers: CVA mechanism: unspecified Qualified Code(s): I63.9 - Cerebral infarction, unspecified Subjective Principal diagnosis: CVA Interval history: Patient seen in f/u for acute CVA. Developed an acute onset of expressive aphasia and confusion. Mri BRAIN demonstrated 2 seperate acute ischemic infarcts in the lef frontal lobe and the right occipital love consistent with embolic stroke. No new neuro sx overnight. Clinically, he remains stable and notes the aphasias is improving. Family at the bedside and note the confusion is also improving. I discussed negative RIC findings and the need for cardio f/u at d/c for long-term rhythm monitoring. Patient and spouse deny any further questions. Objective - Constitutional Vitals: Temp Pulse Resp BP Pulse Ox 97.9 F 71 16 136/73 97 10/08/18 08:11 10/08/18 11:25 10/08/18 11:25 10/08/18 11:25 10/08/18 11:25 Exam: Examination: General Examination: *CONSTITUTIONAL: no acute distress *GENERAL APPEARANCE OF PATIENT appears overall healthy and well groomed *EYES: pupils equal, round, reactive to light and accommodation, conjunctiva clear *CARDIOVASCULAR no peripheral edema, distal temperature normal, dorsalis pedis pulses normal. see vital signs Musculoskeletal: *GAIT AND STATION patient's gait was somewhat unsteady with a noted rightward drift with ambulation *ASSESSMENT OF MUSCLE STRENGTH IN THE UPPER AND LOWER EXTREMITIES bilat erally deltoid, bicep, tricep, junior bookkeeper strength, hip flexors ,anterior tibialis, dorsoflexion of the foot 4/5; subtle right arm weakness but still 4/5 *MUSCLE TONE IN THE UPPER AND LOWER EXTREMITIES normal. No abnormal movements, fasciculations or atrophy identified. Neurological: *ORIENTATION A&OX4 *RECURRENT AND REMOTE MEMORY intact *ATTENTION AND CONCENTRATION are normal *LANGUAGE FUNCTION no significant aphasia or dysarthia was noted. *FUND OF KNOWLEDGE aware of current events, past history, vocabulary *MENTAL attention span and concentration normal. *CN II optic fundi were normal, no papilledema noted. *CN III,IV, PERRLA extraocular eye movements were full, no nystagmus and no ptosis noted. *CN V shows normal sensation and jaw opens symmetrically. *CN VII shows normal facial movement symmetrically, upper and lower bilaterally. *CN VIII shows no significant hearing loss on exam *CN IX,,X palate elevated symmetrically *CN XI normal strength in the sternocleidomastoid muscles, symmetrical shoulder shrugging. *CN XII tongue protruded in the midline, with normal strength and moveme nt. *SENSORY EXAMINATION light touch intact *REFLEXES: deep tendon reflexes were normal and symmetrical , grade 2/4 diffusely, no pathological reflexes were noted. *CEREBELLAR TESTING normal finger to nose, heel/knee/green Results - Laboratory Findings CBC and BMP: 10/07/18 16:20 10/07/18 00:25 Abnormal lab findings: Abnormal lab results RBC 5.61 M/mcL (4.19-5.50) H 10/07/18 16:20 Hgb 17.7 g/dL (12.9-16.9) H 10/07/18 16:20 Hct 52.2 % (37.5-50.1) H 10/07/18 16:20 Heparin Anti-Xa, Unfract 0.80 IU/mL (0.30-0.70) H 10/08/18 10:24 1.34 mg/dL (0.70-1.30) H 10/06/18 13:25 Est GFR (Non-Af Amer) 52 (> 60) L 10/06/18 13:25 Glucose 115 mg/dL (70-105) H 10/06/18 13:25 POC Glucose 104 mg/dL (70-99) H 10/06/18 13:18 LDL Cholesterol, Calc 102 mg/dL (0-99) H 10/07/18 00:25 39 mg/dL (40-59) L 10/07/18 00:25 Ur Specific Bruce > 1.030 (1.010-1.025) H 10/07/18 16:24 40 mg/dL (Negative) H 10/07/18 16:24 Consult Discharge Plan - Plan [facility]errals: [facility] [Primary Care Provider] - Suzette Webb MD [Partnered Physician] - 10/23/18 8:00 am (Follow up with DR. WEBB)
--- NOTE | 2018-10-08 16:22 | Electrocardiograph Report ---
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
[2018-10-09] MEDS ORDERED: Aspirin 325 MG TABLET PO SCH (09:00)
--- NOTE | 2018-10-09 09:42 | Discharge Summary ---
- NOTES TO OUTPATIENT PROVIDER Notes to Outpatient Provider: Patient will need outpatient physical and speech therapy. Patient was started on aspirin 325 daily. We will need to follow up with cardiology to evaluation for afib. Orders not resulted at time of discharge: Pending orders 10/06/18 16:33 Bedside Swallowing Evaluation [EVAL] Routine Date of Encounter: 10/09/18 Time of Encounter: 09:42 - Discharge Diagnosis (1) Cerebrovascular accident Priority: Primary Status: Acute Qualifiers: CVA mechanism: unspecified Qualified Code(s): I63.9 - Cerebral infarction, unspecified (2) HTN (hypertension) Priority: Secondary Status: Acute Qualifiers: Hypertension type: essential hypertension Qualified Code(s): I10 - Essential (primary) hypertension (3) HLD (hyperlipidemia) Priority: Secondary Status: Acute Qualifiers: Qualified Code(s): E78.5 - Hyperlipidemia, unspecified (4) CAD (coronary artery disease) Priority: Secondary Status: Acute Qualifiers: Coronary Disease-Associated Artery/Lesion type: enterprise artery [place] vs. transplanted heart: enterprise heart Associated angina: without angina Qualified Code(s): I25.10 - Atherosclerotic heart disease of enterprise coronary artery without angina pectoris Hospital course: Mr. Benítez is a 78 year old male past medical history of CAD, hypertension, unconfirmed atrial fibrillation came in with complaint of difficulty finding words. Patient was found to have questionable area of subacute to acute stroke in left frontal lobe. Patient was admitted for CVA. Neurology was consulted. Patient was initially put on heparin. RIC was obtained which did not show any intracardiac thrombus showed bi-prostatic aortic valve. Patient's MRI did show small acute infarct in the left frontal lobe. Patient had a CTA of head and neck, carotid Doppler which were unremarkable. Patient has a questionable history of atrial fibrillation however he was not completely sure. Per neurology recommendation no. Anticoagulation was currently recommended and patient was started on aspirin 325 daily along with statin. Patient will need to follow with cardiology for rhythm monitoring to value for possible embolic stroke. Patient is otherwise stable to be discharged home with outpatient physical therapy and speech therapy. Discharge discussed with: patient, nurse - Time Spent with Patient Total time spent providing and/or coordinating discharge services: Time spent: Greater than 30 minutes (38) - Discharge Medications Prescriptions: New Aspirin 325 mg PO DAILY 30 Days #30 tablet Atorvastatin [Lipitor] 40 mg PO HS 30 Days #30 tablet Continued Multivitamin [Multi-Day Vitamins] 1 each PO DAILY Cranberry 400 mg PO BID Ubidecarenone [Coenzyme Q10] 100 mg PO DAILY Lisinopril [Zestril] 2.5 mg PO DAILY Discontinued Aspirin [Lo-Dose Aspirin EC] 81 mg PO DAILY No Action Meclizine HCl [Verticalm] 12.5 mg PO TID PRN PRN Reason: Dizziness Home Medications: Multivitamin [Multi-Day Vitamins] 1 each PO DAILY 09/18/16 [History] Cranberry 400 mg PO BID 10/06/18 [History] Ubidecarenone [Coenzyme Q10] 100 mg PO DAILY 10/06/18 [History] Lisinopril [Zestril] 2.5 mg PO DAILY 10/08/18 [History] Aspirin 325 mg PO DAILY 30 Days #30 tablet 10/09/18 [Rx] Atorvastatin [Lipitor] 40 mg PO HS 30 Days #30 tablet 10/09/18 [Rx] Meclizine HCl [Verticalm] 12.5 mg PO TID PRN 10/09/18 [History] Allergies/Adverse Reactions: Allergy/AdvReac Type Severity Reaction Status Date / Time No Known Allergies Allergy Verified 09/18/16 12:57 Date of admission: 10/06/18 15:37 [facility] Consults: 10/06/18 15:50 Consult to Physical Therapy [CONS] Routine Comment: Evaluate, develop and implement POC Reason for Consult: CVA Does patient have active BEDREST order?: No Is patient medically & hemodynamically stable?: Yes Patient assessed for mobility or mobilized this visit?: No 10/06/18 15:51 Consult to Occupational Therapy [CONS] Routine Comment: Evaluate, develop and implement POC Reason for Consult: CVA Does patient have active BEDREST order?: No Is patient medically & hemodynamically stable?: Yes Patient assessed for mobility or mobilized this visit?: No 10/06/18 16:31 Consult to Neurology [CONS] Routine Consulting Provider: Neurology [facility] Reason for Consult: CVA Time Notified: 16:31 Call Completed: Yes Discharging clinician: Phillip Oneill - Constitutional Vitals: Temp Pulse Resp BP Pulse Ox 97.5 F L 61 16 147/81 98 10/09/18 07:29 10/09/18 07:29 10/09/18 07:29 10/09/18 07:29 10/09/18 04:12 Exam: General: In no acute distress. anxious Respiratory exam: CTAB. no accessory muscle use, rales, rhonchi, wheezes Cardiovascular exam: RRR, +S1, +S2. no murmur, gallop, rubs. GI/Abdominal exam: Non-tender, Non-distended, normal bowel sounds, soft, no peritoneal signs. Extremities exam: no pedal edema, pulses palpable in b/l lower extremities. no calf tenderness Neurological exam: CN II-XII intact, AO X3, no focal deficits. Patient occasionally have difficulty finding words. poor memory. Skin exam: No skin rash - Patient Status Disposition: Home, Self-Care Condition: Undetermined - Discharge Instructions Instructions: Aspirin (By mouth), Atorvastatin (By mouth), Ischemic Stroke (DC), Chronic Hypertension (DC) Follow [facility]: [facility] [Primary Care Provider[facility] - 10/16/18 9:45 am (patient will be seeing Dr. Alex Mcgrath for the red team) Suzette Webb MD [Partnered Physician] - 10/23/18 8:00 am (Follow up with DR. WEBB)
[2018-10-09 15:35] VITALS: BP 136/71
== END 2018-10-09 16:08 | disposition home or self-care (01) | DRG 66 ==
LOC: 2NENU 13:14 → EMEROOARM 13:14 → SUATTDRO 15:37 → OBSVTOIN 15:37 → 2NENU 16:39
PROVIDERS: ADMIT Student in an Organized Health Care Education/Training Program; ATTEND Internal Medicine

== ENCOUNTER 2018-11-04 16:44 | Observation (INO) ==
--- NOTE | 2018-11-04 17:00 | Emergency Department Note ---
Disposition Clinical Impression: Chest pain Qualifiers: Chest pain type: unspecified Qualified Code(s): R07.9 - Chest pain, unspecified Disposition: Admitted As Inpatient Condition: Good Time of Disposition: 17:36 Chest Pain HPI - General Chief Complaint: ED Shortness of Breath/Dyspnea Stated Complaint: JOSEMANUEL Time Seen by Provider: 11/04/18 16:52 Source: patient, EMS Mode of arrival: EMS Limitations: no limitations Vital Signs Reviewed: Yes Nursing Notes Reviewed: Yes - History of Present Illness HPI Narrative: 78-year-old male with history of CAD, CVA, hypertension, aortic valve replacement with a bow being eval on no anticoagulation until her daily aspirin arrives to the emergency department complaining of intermittent chest pain and shortness of breath started yesterday. The patient was worked up at the [facility] and had a negative troponin there. EKG demonstrates no acute process. Chest x-ray demonstrated only a small area of increased density over the anterior right rib which may represent an overlapping shadow. Patient's hemoglobin is 15.3. Platelets at 198. Troponin negative and less 05. INR 09. Creatinine 1.35. Sodium 138. Potassium 4.0. Chloride 108. BUNs 13. Severity scale (1-10): 0 - Related Data Home Medications Medication Instructions Recorded Confirmed Multivitamin [Multi-Day Vitamins] 1 each PO DAILY 09/18/16 11/04/18 Cranberry 400 mg PO BID 10/06/18 11/04/18 Ubidecarenone [Coenzyme Q10] 100 mg PO DAILY 10/06/18 11/04/18 Meclizine HCl [Verticalm] 12.5 mg PO TID PRN 10/09/18 11/04/18 Previous Rx's Medication Instructions Recorded Aspirin 325 mg PO DAILY 30 Days #30 tablet 10/09/18 Atorvastatin [Lipitor] 40 mg PO HS 30 Days #30 tablet 10/09/18 Acetaminophen [Tylenol] 650 mg PO Q6HR PRN tablet 11/05/18 Nitroglycerin 0.4 mg SL Q5MPRN PRN #6 tab.subl 11/05/18 Allergies Allergy/AdvReac Type Severity Reaction Status Date / Time No Known Allergies Allergy Verified 09/18/16 12:57 All systems ED: reviewed and negative except as stated. Constitutional: Denies: fever, chills, weakness ENT ED: Denies: dysphagia Cardiovascular: Reports: chest pain, dyspnea on exertion. Denies: edema, syncope Respiratory: Reports: dyspnea. Denies: cough, sputum production Gastrointestinal: Denies: abdominal pain, nausea, vomiting Genitourinary: Denies: urgency, dysuria Musculoskeletal: Denies: back pain Integumentary: Denies: rash Neurological: Denies: headache Chest Pain PMH - Past Medical History Medical history: Reports: atrial fibrillation, cancer, coronary artery disease, hyperlipidemia, malignancy, myocardial infarction, osteoporosis, TIA, valvular heart disease Surgical history: Reports: heart valve replacement, orthopedic, other Psychiatric history: Reports: no psych history - Social History Smoking Status: Former smoker Alcohol use: Reports: none Drug use: Reports: none Physical Exam - General Limitations: no limitations General appearance: alert, in no apparent distress - Head Head exam: atraumatic, normocephalic, normal inspection - Eye Eye exam: Present: normal appearance, PERRL, EOMI - ENT ENT exam: normal exam, normal oropharynx, mucous membranes moist - Neck Neck exam: Present: normal inspection, full ROM, trachea midline - Chest Chest inspection: Present: normal inspection, symmetric chest wall rise, other (Sternotomy scar noted) - Respiratory Respiratory exam: Present: normal lung sounds bilaterally - Cardiovascular Cardiovascular exam: Present: regular rate, normal rhythm, normal heart sounds - Abdominal Exam Abdominal exam: Present: soft, Non-Tender. Absent: tenderness, distention, guarding, rebound, rigidity - Extremities Exam Extremities exam: Present: normal inspection, full ROM, normal capillary refill. Absent: tenderness, pedal edema - Neurological Exam Neurological exam: Present: alert, oriented X3 - Skin Skin exam: Present: warm, dry, intact, normal color Course Vital Signs Temperature 98.1 F 11/04/18 16:48 Pulse Rate 63 11/04/18 16:48 Respiratory Rate 18 11/04/18 16:48 Blood Pressure 154/68 11/04/18 16:48 O2 Sat by Pulse Oximetry 99 11/04/18 16:48 Temperature 98.1 F 11/04/18 16:48 Pulse Rate 63 11/04/18 16:48 Respiratory Rate 18 11/04/18 16:48 Blood Pressure 154/68 11/04/18 16:48 O2 Sat by Pulse Oximetry 99 11/04/18 16:48 Oxygen Delivery Oxygen Delivery Room Air Chest Pain - MDM Narrative Medical decision making narrative: Patient work-up at the [place] demonstrates no acute process, but given the patient's history combined with the co-morbidities, we will admit the patient to the hospital at this time. No further questions or concerns noted at this time. EKG repeated here in the ED unremarkable. Accepted by Dr. Azevedo. - Medical Records Medical records reviewed: Yes I reviewed the patient's medical records. - Lab Data Result diagrams: 11/05/18 02:18 11/05/18 02:18 - EKG Data EKG attestation: Yes I reviewed and interpreted this EKG. EKG results narrative: Heart rate 60 beats for minute. No ST elevation or ST depression noted. One PVC. No acute changes noted. Attestation Statement - Attestation Attestation: Resident Attestation: I examined this patient and my medical decision making was reviewed with the Resident Physician. I agree with the documented findings, disposition and treatment plan as described except to the extent set forth below. We independently had [id number] contact with the patient. EKG reviewed with resident physician. Agree with documentation. Patient presenting for evaluation of chest pain. Patient transferred from the [place] as there hospital is full and they are unable to admit him for further management. Repeat troponin will be obtained. Patient be admitted for further management.
--- NOTE | 2018-11-04 17:52 | Internal Med History&Physical ---
Date of Encounter: 11/04/18 Time of Encounter: 17:52 Internal Medicine - H&P: HPI Chief complaint: chest pain Plans for Post Hospital Care: Home History of present illness: Mr. Benítez is a 78 year old male with past medical history of CAD, CVA/TIA, OR x 2, cardiac stent x 3, HTN, bovine aortic valve who presented as transfer from [place] for cardiac evaluation after presenting with c/o chest pain today and yesterday after walking. The chest pain was centrally located, described as a tightness and like a brick was on his chest. Chest pain lasted > 10 min before resolving on its own. Chest pain not positional in nature. Reports chest pain radiated to his left shoulder and arm today. Admits to blurred vision, feeling dizzy, and shortness of breath associated with chest pain. Exertion worsens the chest pain, rest improves the chest pain. He reports some vague chest discomfort at this time. At the [place], workup pertinent for negative troponin ( < 0.05), EKG without acute ischemic changes, Hgb 15.3, platelets 198, Cr 1.35, Na 138, and potassium 4.0. Chest x-ray showed small area of increased density over the anterior right rib, may represent an overlapping shadow. Past Med Surg Social Fam HX - Past Medical History Medical history: atrial fibrillation, cancer, coronary artery disease, hyperlipidemia, malignancy, myocardial infarction, osteoporosis, TIA, valvular heart disease Additional medical history: Heart Valve replacement Psychiatric history: no psych history - Past Surgical History Surgical History: heart valve replacement, orthopedic, other Additional surgical history: tissue valve - Social History Smoking Status: Former smoker Smokeless Tobacco Status: No Alcohol use: none Drug use: none - Family History Father Living Status: Hx Family Cardiac Disorders: Yes (brother) Hx Family Respiratory Disorders: No Hx Family Cancer: Yes (mother) Hx Family GI Disorders: No Hx Family Endocrine Disorder: Yes (mother, father) Hx Family Neuromuscular Disorders: No Hx Family Neurologic Disorders: No Hx Family HEENT Disorders: No Hx Family Autoimmune Disorders: No Internal Medicine - H&P: Meds Multivitamin [Multi-Day Vitamins] 1 each PO DAILY 09/18/16 [History] Cranberry 400 mg PO BID 10/06/18 [History] Ubidecarenone [Coenzyme Q10] 100 mg PO DAILY 10/06/18 [History] Aspirin 325 mg PO DAILY 30 Days #30 tablet 10/09/18 [Rx] Atorvastatin [Lipitor] 40 mg PO HS 30 Days #30 tablet 10/09/18 [Rx] Meclizine HCl [Verticalm] 12.5 mg PO TID PRN 10/09/18 [History] Allergy/AdvReac Type Severity Reaction Status Date / Time No Known Allergies Allergy Verified 09/18/16 12:57 All Systems PM: A 10-system review of systems was performed and is negative for pertinent findings except as documented above in the HPI. - Constitutional Constitutional: no excessive sweating - EENT Eyes: blurry vision, no diplopia - Cardiovascular Cardiovascular ROS IM: as per HPI, chest pain, dyspnea, lightheadedness, no diaphoresis, no palpitations - Respiratory Respiratory: as per HPI, dyspnea, no cough, no wheezing - Gastrointestinal Gastrointestinal: no abdominal pain, no nausea, no vomiting - Neurological Neurological ROS: as per HPI, dizziness - Constitutional Vitals: Temp Pulse Resp BP Pulse Ox 98.1 F 63 18 154/68 99 11/04/18 16:48 11/04/18 16:48 11/04/18 16:48 11/04/18 16:48 11/04/18 16:48 General appearance: Present: A&O X 3, no acute distress, answers questions appropriately Exam: . - Head Head exam: Present: atraumatic, normocephalic - Eye Eye exam: Present: EOMI, normal appearance, PERRL, sclera anicteric - Neck Neck exam general surgery: Present: full ROM, supple. Absent: lymphadenopathy - Respiratory Respiratory exam: Present: CTAB. Absent: accessory muscle use, decreased breath sounds, rales, respiratory distress, rhonchi, wheezes, tachypnea - Cardiovascular Cardiovascular exam: Present: RRR, +S1, +S2. Absent: +S3 - GI/Abdominal GI/Abdominal exam: Present: soft. Absent: distended, tenderness - Extremities Exam Extremities exam: Present: normal inspection, warm. Absent: pedal edema - Neurological Exam Neurological exam: Present: alert, CN II-XII intact, oriented X3, no focal deficits. Absent: facial droop, speech deficit - Skin Skin exam: Present: dry, intact Internal Med - H&P Results - Labs Labs: Cardiac Enzymes 11/04/18 Range/Units 17:20 Troponin I < 0.03 (< 0.04) ng/mL - Assessment and Plan (1) Chest pain Current Visit: Yes Status: Acute Assessment and plan: Cardiac history of CAD, stent x 3, OR x 2, bovine aortic valve Initial troponin negative at [place] Electrolytes within normal limits CXR at [place] negative for acute cardiopulmonary process EKG shows no acute ischemic changes Trend troponins x 3 Repeat echocardiogram Restart home statin Continue home ASA Request records from [place] Cardiac monitoring Qualifiers: Chest pain type: unspecified Qualified Code(s): R07.9 - Chest pain, unspecified (2) CAD (coronary artery disease) Current Visit: Yes Status: Chronic Assessment and plan: As above for chest pain--continue ASA, continue home statin Requesting records from [place] Qualifiers: Coronary Disease-Associated Artery/Lesion type: craig artery [place] vs. transplanted heart: [place]ig heart Associated angina: without angina Qualified Code(s): I25.10 - Atherosclerotic heart disease of [place] coronary artery without angina pectoris (3) Cerebrovascular accident Current Visit: No Status: Acute Assessment and plan: 10/06/18 Admitted for CVA with expressive aphasia; small left frontal lobe infarct seen on CT head and brain MRI at that time No neuro symptoms at this time--continue to monitor SCDs for VTE prophylaxis Qualifiers: CVA mechanism: unspecified Qualified Code(s): I63.9 - Cerebral infarction, unspecified (4) HLD (hyperlipidemia) Current Visit: Yes Status: Chronic Assessment and plan: Continue home statin Qualifiers: Qualified Code(s): E78.5 - Hyperlipidemia, unspecified (5) HTN (hypertension) Current Visit: No Status: Acute Assessment and plan: BP within normal limits at this time No antihypertensives taken at home Continue to monitor pressures Qualifiers: Hypertension type: essential hypertension Qualified Code(s): I10 - Essential (primary) hypertension (6) DVT prophylaxis Current Visit: Yes Status: Acute Assessment and plan: SCDs for now - Time Spent With Patient Total time spent is greater than 50% in coordination of care (as documented) at patient's floor/unit and/or counseling patient:
[2018-11-04] MEDS ORDERED: Naloxone 0.4 MG/ML INJ IVP PRN (17:53)
[2018-11-04] MEDS ORDERED: Acetaminophen 325 MG TABLET PO PRN (20:12)
[2018-11-04] MEDS ORDERED: *HR* HYDROcodone/Acet 5/325 mg TABLET PO PRN (20:12)
[2018-11-04] MEDS ORDERED: Ondansetron ODT 4 MG TAB.RAPDIS SL PRN (20:12)
[2018-11-04] MEDS ORDERED: Nitroglycerin 0.4 MG TAB.SUBL SL PRN (21:57)
[2018-11-04 22:53] LABS: Basophils % 0.3 %; Eosinophils # 0.1 K/mcL (0.0-0.6); Hematocrit 46.8 % (37.5-50.1); Hemoglobin 15.8 g/dL (12.9-16.9); Immature Granulocytes % 0.1 % (0-4); Lymphocytes # 1.3 K/mcL (0.6-4.6); Lymphocytes % 18.2 %; Mean Corpuscular HGB Conc 33.8 g/dL (31.6-35.5); Mean Corpuscular Hemoglobin 31.2 pg (28.0-33.3); Mean Corpuscular Volume 92.3 fL (83.0-100.0); Mean Platelet Volume 9.9 fL (9.4-12.4); Monocytes # 0.7 K/mcL (0.0-1.3); Monocytes % 10.3 %; Platelet Count 200 K/mcL (140-400); Red Blood Count 5.07 M/mcL (4.19-5.50); Red Cell Distribution Width 13.1 % (11.5-14.5); Segmented Neutrophils % 70.1 %; White Blood Count 7.2 K/mcL (4.3-11.1)
[2018-11-04 23:16] LABS: Alanine Aminotransferase 19 Units/L (7-52); Albumin 4.2 g/dL (3.5-5.7); Albumin/Globulin Ratio 1.6 (1.1-2.2); Alkaline Phosphatase 72 Units/L (34-104); Aspartate Amino Transferase 19 Units/L (13-39); BUN/Creatinine Ratio 10 (6-26); Bilirubin,Total 0.5 mg/dL (0.3-1.0); Blood Urea Nitrogen 12 mg/dL (8-23); Calcium 9.5 mg/dL (8.6-10.3); Carbon Dioxide 27 mEq/L (23-29); Chloride 103 mEq/L (98-107); Globulin 2.7 g/dL (2.4-3.5); Glucose 151 mg/dL (70-105); Osmolality,Calculated 291 (280-300); Sodium 139 mEq/L (136-145); Total Protein 6.9 g/dL (6.4-8.9); eGFR For African Americans > 60 (> 60); eGFR For Non-African Americans 56 (> 60)
[2018-11-04 23:20] LABS: Albumin 4.3 g/dL (3.5-5.7); Albumin/Globulin Ratio 1.7 (1.1-2.2); Bilirubin,Direct 0.1 mg/dL (0.0-0.2); Bilirubin,Indirect 0.4 mg/dL (0.0-1.2); Bilirubin,Total 0.5 mg/dL (0.3-1.0); Globulin 2.6 g/dL (2.4-3.5); Total Protein 6.9 g/dL (6.4-8.9)
[2018-11-05 03:32] LABS: Basophils % 0.4 %; Eosinophils # 0.1 K/mcL (0.0-0.6); Eosinophils % 1.4 %; Hematocrit 46.1 % (37.5-50.1); Hemoglobin 15.6 g/dL (12.9-16.9); Immature Granulocytes % 0.4 % (0-4); Lymphocytes # 1.2 K/mcL (0.6-4.6); Lymphocytes % 17.8 %; Mean Corpuscular HGB Conc 33.8 g/dL (31.6-35.5); Mean Corpuscular Hemoglobin 31.8 pg (28.0-33.3); Mean Corpuscular Volume 94.1 fL (83.0-100.0); Mean Platelet Volume 9.9 fL (9.4-12.4); Monocytes # 0.8 K/mcL (0.0-1.3); Monocytes % 11.9 %; Neutrophils # 4.7 K/mcL (1.6-8.9); Platelet Count 195 K/mcL (140-400); Red Cell Distribution Width 12.8 % (11.5-14.5); Segmented Neutrophils % 68.1 %
[2018-11-05 03:48] LABS: BUN/Creatinine Ratio 10 (6-26); Blood Urea Nitrogen 12 mg/dL (8-23); Calcium 9.3 mg/dL (8.6-10.3); Carbon Dioxide 24 mEq/L (23-29); Chloride 106 mEq/L (98-107); Glucose 86 mg/dL (70-105); Osmolality,Calculated 283 (280-300); Sodium 137 mEq/L (136-145); eGFR For African Americans > 60 (> 60); eGFR For Non-African Americans 59 (> 60)
[2018-11-05] MEDS ORDERED: Multivit/Ca/Min/Fe/FA 1 TAB TABLET PO SCH (09:00)
[2018-11-05] MEDS ORDERED: Aspirin 325 MG TABLET PO SCH (09:00)
[2018-11-05] MEDS ORDERED: UBIDECARENONE 100 MG PO SCH (09:00)
--- NOTE | 2018-11-05 09:47 | Internal Med Progress Note ---
Hospitalist Progress Note - Encounter Date of Encounter: 11/05/18 Time of Encounter: 09:47 - Exam Vitals: Temp Pulse Resp BP Pulse Ox 97.9 F 66 15 131/82 99 11/05/18 07:00 11/05/18 07:00 11/05/18 07:00 11/05/18 07:00 11/05/18 07:00 - Time Spent with Patient Total time spent is greater than 50% in coordination of care (as documented) at patient's floor/unit and/or counseling patient: Internal Medicine: Result - Labs CBC & Chem 7: 11/05/18 02:18 11/05/18 02:18 Labs: Short CBC 11/04/18 11/05/18 Range/Units 22:04 02:18 WBC 7.2 7.0 (4.3-11.1) K/mcL Hgb 15.8 15.6 (12.9-16.9) g/dL Hct 46.8 46.1 (37.5-50.1) % Plt Count 200 195 (140-400) K/mcL Neutrophils # 5.0 4.7 (1.6-8.9) K/mcL BMP 11/04/18 11/05/18 22:04 02:18 Sodium 139 137 Potassium 4.0 4.0 Chloride 103 106 Carbon Dioxide 27 24 BUN 12 12 Creatinine 1.25 1.19 Glucose 151 H 86 Calcium 9.5 9.3 Cardiac Enzymes 11/04/18 11/04/18 11/05/18 Range/Units 17:20 22:04 02:18 Troponin I < 0.03 < 0.03 < 0.03 (< 0.04) ng/mL 11/05/18 Range/Units 08:14 Troponin I 0.03 (< 0.04) ng/mL Liver Function 11/04/18 11/04/18 Range/Units 22:04 22:04 Total Bilirubin 0.5 0.5 (0.3-1.0) mg/dL Direct Bilirubin 0.1 (0.0-0.2) mg/dL AST 19 20 (13-39) Units/L ALT 19 18 (7-52) Units/L Alkaline Phosphatase 72 71 (34-104) Units/L Albumin 4.2 4.3 (3.5-5.7) g/dL Consult Discharge Plan - Plan [facility]errals: [facility] [Primary Care Provider[facility] -
--- NOTE | 2018-11-05 12:16 | Discharge Summary ---
<Benitez Bradley - Last Filed: 11/05/18 18:25> - NOTES TO OUTPATIENT PROVIDER Notes to Outpatient Provider: - Patient plans to follow up cardiology. Likely needs to be on anticoagulation. Discussed with patient, who is amenable to starting anticoagulation if necessary. Will defer to primary care or cardiology for starting medication due to necessary follow up required. - Otherwise, cardiac workup was negative. Likely typical chest pain resolved with rest. Pt in no acute distress during hospital course. - We will discharge with sublingual nitroglycerin to be used as needed chest pain. Recommended that patient have early follow-up with PCP and cardiology Date of Encounter: 11/05/18 Time of Encounter: 12:16 - Discharge Diagnosis (1) Typical angina Priority: Primary Status: Acute (2) Chest pain Priority: Primary Status: Acute Qualifiers: Chest pain type: unspecified Qualified Code(s): R07.9 - Chest pain, unspecified (3) CAD (coronary artery disease) Priority: Secondary Status: Chronic Qualifiers: Coronary Disease-Associated Artery/Lesion type: [place] artery [place] vs. transplanted heart: [place] heart Associated angina: without angina Qualified Code(s): I25.10 - Atherosclerotic heart disease of [place] coronary artery without angina pectoris (4) HLD (hyperlipidemia) Priority: Secondary Status: Chronic Qualifiers: Qualified Code(s): E78.5 - Hyperlipidemia, unspecified (5) HTN (hypertension) Priority: Secondary Status: Acute Qualifiers: Hypertension type: essential hypertension Qualified Code(s): I10 - Essential (primary) hypertension (6) DVT prophylaxis Priority: Secondary Status: Acute Hospital course: Mr. Benítez is a 78 year old male past medical history significant for atrial fibrillation, coronary artery disease status post 3 stents, bovine aortic valve replacement, CVA/TIA, hypertension [facility] presenting with chest pain after walking. Pain was centrally located, associated with chest tightness and pressure. Additionally was associated with blurred vision, dizziness, shortness of breath. Pain was relieved with rest after 10 minutes or so. On presentation in the ED, patient no longer had chest pain. Vitals are hemodynamically stable. Patient had negative troponins 3. EKG showed no acute ST elevations or depressions. Other lab work was benign. Given heart score = 5, mostly due to multiple risk factors and age, patient was admitted for further evaluation. Patient had been evaluated for CVA/TIA about 1 month ago. Most workup had been done at that time. Echocardiogram from 10/07/18 showed LVEF 55% with only mild left ventricular diastolic dysfunction. Transesophageal echocardiogram from 10/08/18 showed normal left ventricular hypertrophy ventricular systolic function. Additionally showed no evidence for intracardiac thrombus. However, patient's most recent stress test did show suspected inferior lateral scarring, but no stress-induced ischemia identified. Ejection fraction noted on stress testing was markedly low compared to echo findings with EF = 23%. Recommended for patient to follow-up with outpatient cardiology for further management. Given essentially negative workup, we will discharge patient home to follow up with primary care physician and cardiology. We will discharge with a few tabs of ohara blingual nitroglycerin. We have given strict instructions of the patient should return to the ED with worsening symptoms. Of note, patient reported history of atrial fibrillation, but was not on a beta beny or anticoagulation. We will refrain from starting anticoagulation in the hospital, as patient would likely need follow-up with his outpatient providers for monitoring. Additionally, margaret ent may benefit from BRODIE inhibitor, beta beny, statin, aspirin for management of coronary artery disease. Discharge discussed with: patient, family - Time Spent with Patient Total time spent providing and/or coordinating discharge services: Time spent: Less than 30 minutes, D/C greater than 8 hours after Admission - Discharge Medications Prescriptions: New Acetaminophen [Tylenol] 650 mg PO Q6HR PRN tablet PRN Reason: Mild Pain/Fever Nitroglycerin 0.4 mg SL Q5MPRN PRN #6 tab.subl PRN Reason: Chest Pain Continued Aspirin 325 mg PO DAILY 30 Days #30 tablet Atorvastatin [Lipitor] 40 mg PO HS 30 Days #30 tablet No Action Multivitamin [Multi-Day Vitamins] 1 each PO DAILY Cranberry 400 mg PO BID Ubidecarenone [Coenzyme Q10] 100 mg PO DAILY Meclizine HCl [Verticalm] 12.5 mg PO TID PRN PRN Reason: Dizziness Home Medications: Multivitamin [Multi-Day Vitamins] 1 each PO DAILY 09/18/16 [History] Cranberry 400 mg PO BID 10/06/18 [History] Ubidecarenone [Coenzyme Q10] 100 mg PO DAILY 10/06/18 [History] Aspirin 325 mg PO DAILY 30 Days #30 tablet 10/09/18 [Rx] Atorvastatin [Lipitor] 40 mg PO HS 30 Days #30 tablet 10/09/18 [Rx] Meclizine HCl [Verticalm] 12.5 mg PO TID PRN 10/09/18 [History] Acetaminophen [Tylenol] 650 mg PO Q6HR PRN tablet 11/05/18 [Rx] Nitroglycerin 0.4 mg SL Q5MPRN PRN #6 tab.subl 11/05/18 [Rx] Allergies/Adverse Reactions: Allergy/AdvReac Type Severity Reaction Status Date / Time No Known Allergies Allergy Verified 09/18/16 12:57 Date of admission: 11/04/18 19:26 [facility] Dis[facility]: Benitez Bradley Anticipated date of discharge: 11/05/18 - Constitutional Vitals: Temp Pulse Resp BP Pulse Ox 97.9 F 66 15 131/82 99 11/05/18 07:00 11/05/18 07:00 11/05/18 07:00 11/05/18 07:00 11/05/18 07:00 General appearance: Present: A&O X 3, no acute distress, answers questions appropriately Exam: This is a pleasant 78-year-old man who is resting comfortably in examination. Accompanied by . - Head Head exam: Present: atraumatic, normal inspection, normocephalic - Eye Eye exam: Present: EOMI - ENT ENT exam: Present: normal exam - Neck Neck exam general surgery: Present: full ROM, supple - Respiratory Respiratory exam: Present: CTAB. Absent: respiratory distress, rhonchi, stridor, wheezes, tachypnea - Cardiovascular Cardiovascular exam: Present: RRR, +S1, +S2. Absent: irregular rhythm - GI/Abdominal GI/Abdominal exam: Present: normal bowel sounds, soft, no peritoneal signs. Absent: distended, firm, guarding - Extremities Exam Extremities exam: Present: full ROM, warm, radial pulses palpable and symmetrical - Neurological Exam Neurological exam: Present: alert, no focal deficits - Psychiatric Psychiatric exam: Present: normal affect, normal mood - Patient Status Disposition: Home, Self-Care Condition: Good Functional capacity at discharge: independent ambulation Overall status at discharge: patient is progressing back to baseline - Discharge Instructions Instructions: Angina (DC) [facility]: [facility] Care Provider[facility] - (please call [facility] on Sun morning to schedule a follow up appt. Also need to follow up with cardio at [facility]) - Diet and Activity Activity: increase activity as tolerated Diet: low fat, low cholesterol, low salt diet <Ellen Freeman - Last Filed: 11/05/18 23:05> Date of Encounter: 11/05/18 Hospital course: Mr. Benítez is a 78 year old male - Time Spent with Patient Total time spent providing and/or coordinating discharge services: Date of admission: 11/04/18 19:26 Primary care physician: PCP [facility] - Constitutional Vitals: Temp Pulse Resp BP Pulse Ox 98.5 F 83 18 116/65 97 11/05/18 15:38 11/05/18 15:38 11/05/18 15:38 11/05/18 15:38 11/05/18 15:38 - Attending Attestation I examined this patient and my medical decision-making was reviewed with the Resident Physician. I agree with the documented findings, disposition and treatment plan as described except to the extent set forth below. Cardiac workup negative: no acute ST/T wave changes on EKG. Troponins cycled and negative, echocardiogram (both TTE and a RIC were completed) one month ago reviewed and is fairly unremarkable. Nuclear stress test done at [facility] records reviewed, and were negative for ischemia. Patient to follow-up with Cardiology and PCP. We recommend re-discussion of anticoagulation with patient main provider as he is on aspirin for afib but not AC.
[2018-11-05 15:41] VITALS: BP 116/65
--- NOTE | 2018-11-06 15:21 | Electrocardiograph Report ---
[facility] Test Date: 2018-11-04 Pat Name: Boris Benítez Department: [id number] Room: [facility] Gender: M Chancellor: : 1940 Requested By: Boris Merritt Order Number: [id number] Reading MD: Josh Santos Measurements Intervals [place] Rate: 60 P: -43 NC: 178 QRS: -8 QRSD: 101 T: 101 QT: 416 QTc: 416 Interpretive Statements Sinus rhythm Atrial premature complexes Inferior infarct, old Lateral leads are also involved Electronically Signed On 11-06-2018 15:19:08 EDT by Josh Santos
--- NOTE | 2018-11-07 12:40 | Electrocardiograph Report ---
[facility] Test Date: 2018-11-05 Pat Name: Boris Benítez Department: [id number] Room: [facility] Gender: M Closer On: : 1940 Requested By: [id number] Order Number: [id number] Reading MD: Josh Santos Measurements Intervals [place] Rate: 68 P: -74 [place]: 153 QRS: 64 QRSD: 100 T: 44 QT: 405 QTc: 431 Interpretive Statements Sinus or ectopic atrial rhythm Borderline T abnormalities, lateral leads Minimal ST elevation, inferior leads Electronically Signed On 11-07-2018 12:38:45 EDT by Josh Santos
== END 2018-11-05 18:29 | disposition home or self-care (01) ==
LOC: CDU 16:44 → EMEROOARM 16:44 → SUATTDRO 19:26 → CDU 19:36
PROVIDERS: ADMIT Internal Medicine Nephrology; ATTEND Student in an Organized Health Care Education/Training Program